=== PATIENT | male | born 1955 ===

== ENCOUNTER → 2024-07-14 10:42 | Outpatient (REF) | payer MEDICARE, BC, SELFPAY | LOC: RAD 10:42 | PROVIDERS: ATTENDING PHYSICIAN Urology; FAMILY PHYSICIAN Internal Medicine | DX: R97.20 Elevated prostate specific antigen [PSA] (principal) | CPT/HCPCS: 71046 ==

== ENCOUNTER → 2024-07-18 13:41 | Outpatient (REF) | payer MEDICARE, BC, SELFPAY | LOC: MRI 3T 13:41 | PROVIDERS: ATTENDING PHYSICIAN Urology; FAMILY PHYSICIAN Internal Medicine | DX: R97.20 Elevated prostate specific antigen [PSA] (principal) | CPT/HCPCS: 72197; A9575 ==

== ENCOUNTER 2025-01-28 21:46 | Observation (INO) | payer MEDICARE, BC, SELFPAY ==
[2025-01-28 16:41] VITALS: BP 170/90
[2025-01-28 17:10] LABS: Hematocrit 48.2 % (39.0-52.0); Hemoglobin 16.4 g/dL (13.0-18.0); Mean Corp Hgb Conc. 34.0 g/dL (33.0-37.0); Mean Corpuscular Volume 88.6 fL (80.0-94.0); Nucleated Red Blood Cells % 0 % (-); Platelet Count 186 10^3/uL (130-400); Red Cell Dist. Width 13.0 % (11.5-14.5)
[2025-01-28 17:17] LABS: INR 0.93; PT 12.9 Sec (11.4-14.6)
[2025-01-28 17:18] LABS: APTT 26.9 Sec (23.4-35.0)
[2025-01-28 17:20] LABS: ALT (SGPT) 26 U/L (0-50); AST (SGOT) 31 U/L (17-59); Albumin 4.9 g/dl (3.5-5.0); Alkaline Phosphatase 116 U/L (38-126); Blood Urea Nitrogen 22 mg/dl (9-20); Calcium 9.6 mg/dl (8.4-10.2); Carbon Dioxide 29 mmol/L (22-30); Chloride 104 mmol/L (98-107); Glucose 96 mg/dl (70-99); Potassium 4.9 mmol/L (3.5-5.1); Sodium 141 mmol/L (135-145); Total Protein 8.7 g/dl (6.3-8.2); eGFR > 60.00
--- NOTE | 2025-01-28 21:03 | ED.GENMED ---
History of Present Illness
General
Chief Complaint: Visual Problem
Source: patient
Time Seen by Provider: 01/28/25 19:50
History of Present Illness
History of Present Illness:
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 Symptoms
started approximately 10 days ago with patient noting diplopia to the left eye that improves when covering one of his eyes but symptoms returned after both eyes are open. He does report maybe having a slight headache around a month ago but states
that could just be him trying to think of other potential symptoms, no headache currently. He did receive a flu vaccination about 3 weeks ago. Denies any focal weakness or numbness, traumatic injuries, extremity related concerns, chest pain or
shortness of breath. Patient does note that on blood work he did have an upward trending hemoglobin A1c but is currently not on any medications for diabetes.
Past History
Past History
ED Past Medical History: Arrthythmia, CAD and HTN
ED Past Surgical History: Cardiac
Social History
Tobacco: Non-smoker
Alcohol: None
Drug: None
Personal:
Living: with family
Review of Systems
Review of Systems
All Other Systems: ROS reviewed and negative except as documented in HPI and ROS
Phy Exam
Physical Exam
Physical Exam:
GENERAL: Alert , in no apparent distress
HEAD: Normocephalic atraumatic
EYE: conjunctiva clear, pupils 3 mm bilateral, patient unable to laterally deviate the left eye, gross vision intact, PERRL
NECK: Supple, no carotid bruit
ENT: o/p clr, mmm.
CARDIAC: Regular rate and rhythm
LUNGS: Clear breath sounds bilaterally, no acute respiratory distress, no wheezes/rales/rhonchi
NEUROLOGICAL: Alert and oriented
SKIN: Warm and dry, skin intact.
MUSCULOSKELETAL: well perfused.
PSYCH: Normal and appropriate interaction.
Scores
Heart Failure Risk
Heart Failure Risk Score: Not Applicable
Heart Score for Chest Pain Patients
STEMI patient?: Not applicable
Withdrawal Assessment of Alcohol
Withdrawal Assessment Completed?: Not applicable
Course
Orders/Labs/Results
Orders:
Orders
01/28/25 16:51
C-Reactive Protein Urgent
Comment: ADD ON
Complete Blood Count/With Diff Urgent
Comprehensive Metabolic Panel Urgent
Erythrocyte Sed Rate Urgent
Comment: ADD ON
PTT Urgent
Prothrombin Time Urgent
01/28/25 19:51
CT Head W/o Iv Contrast Urgent
Comment:
Reason For Exam: suspected 6th nerve palsy
01/28/25 20:49
Add On- LAB Urgent
Tests Added?: esr/crp
01/28/25 20:59
Electrocardiogram (*1) Urgent
Reason for Study: TIA/Stroke
EKG- Treatment ONCE
Interrogate Pacemaker- Treatment ONCE
01/28/25 21:19
Admit/Transfer Patient As Directed
Co-Sign Provider:
Level of Care: Observation services
Assign to:: Medical/Surgical
Physician / Group: anam
Diagnosis: sixth nerve palsy
PRN Pain Medication Management As Directed
May give lesser potent ordered pain med per pt: Yes
preference::
Protocol:: Medication orders for pain may be administered in a
manner that supports deferring to patient preference
when the pt is:
- Requesting an ordered lesser potent pain medication.
Least to most potent pain medications are defined
as: acetaminophen < NSAID < tramadol < opioids
(morphine, oxycodone, hydromorphone).
- Requesting a lesser dose of the same medication IF
ORDERED.
- Requesting a less intrusive route of administration
if both routes are prescribed by the provider (PO <
IV).
01/28/25 21:20
Code Status As Directed
Resuscitation Status: Full Code
01/28/25 21:[address] Non Medication Order As Directed
Physician Order: please do swallow eval
Above order entered?: Yes
01/28/25 22:38
Acetaminophen [Tylenol] 650 mg PO Q4HPRN PRN
Bisacodyl [Dulcolax] 10 mg RECTAL [id number] PRN
Docusate W/Senna [Senokot-S] 1 tablet PO BIDPRN PRN
Polyethylene Glycol Powder [Miralax] 17 grams PO DAILYPRN PRN
01/28/25 22:38
NEUROLOGY CONSULT Routine
Consulting Provider: Abdias Win
Was physician already notified: Yes
MRI Brain [MR Brain Without Contrast] Routine
Comment:
Reason For Exam: double vision
Recent pill cam endoscopy?: No
Activity As Directed
Activity Level: As Tolerated
Neurological Checks As Directed
Frequency: Per unit guidelines
Nursing to Place Non Medication Order As Directed
Physician Order: please provide eye patch
Vital Signs As Directed
Frequency: Per unit guidelines
DX Deep Vein Thrombosis Video Routine
01/29/25 Breakfast
Regular
At Your Request: Full Participation
01/29/25 08:00
Aspirin Chewable [Low Strength Aspirin] 81 mg PO DAILY
Atorvastatin [Lipitor] 80 mg PO DAILY
Ezetimibe [Zetia] 10 mg PO DAILY
Metoprolol Xl [Toprol Xl] 25 mg PO DAILY
tadalafil 5 mg PO DAILY
01/29/25 18:00
Enoxaparin Sodium [Lovenox] 40 mg SC QPM
Abnormal Lab Results
01/28/25
16:51
Absolute Monos (auto) 0.7 H 10^3/uL
(0.1-0.6)
BUN 22 H mg/dl
(9-20)
Total Bilirubin 1.8 H mg/dl
(0.2-1.3)
Total Protein 8.7 H g/dl
(6.3-8.2)
01/28/25 16:51
01/28/25 16:51
Vital Signs
Initial and Last Documented VS:
Initial Vital Signs
Temp Pulse Resp BP Pulse Ox
98.8 F 62 18 170/90 95
01/28/25 16:41 01/28/25 16:41 01/28/25 16:41 01/28/25 16:41 01/28/25 16:41
Last Documented Vital Signs
Temp Pulse Resp BP Pulse Ox
97.7 F 61 16 170/89 97
01/28/25 22:52 01/28/25 22:52 01/28/25 22:52 01/28/25 22:52 01/28/25 22:52
MDM/Problems Addressed
Differential Diagnosis Includes:
CVA
GCA
Malignancy/Mass
ICH
Cavernous Sinus Thrombosis
Aneurysm
MS
DM
MDM/Problems Addressed:
70-year-old male presenting to the ER for evaluation of what appears to be a 6th cranial nerve palsy, symptoms ongoing for approximately 10 days. Seen by ophthalmology today who advised patient come to the ER for further evaluation. No fevers or
infectious symptoms. Patient otherwise hemodynamically stable. Labs and CT imaging ordered. Disposition pending
*Radiology
Radiology exam reviewed: radiology read reviewed
*Pulse Oximetry
SaO2: 95
Oxygen Mode of Delivery: Room air
Patient hypoxic: no
*Critical Care Note
Total Time (30-74mins, 75-104mins- exclusive of procedures): Not Applicable
Patient Management
Discussion with other providers: Hospitalist
Escalation/DeEscalation of care consider admission/obs:
Hospitalist team accepts for admission for continued evaluation and treatment with likely plan for further MRI imaging and neurology consultation
ED Attending Note
-
Portions of this chart may have been created with voice recognition software.� Occasional wrong word or��sound alike� substitutions may have occurred due to the inherent limitations of voice recognition software.
Discharge Plan
Departure
Patient Disposition: Admit
Date of Disposition: 01/28/25
Time of Disposition: 21:03
Presentation/result/management discussed w/ accepting MD/DO: Hospitalist
Discharge Problem:
Sixth cranial nerve palsy
Interventions
Interventions:
*Risk Screen - Suicide Last Done: 01/28/25 22:37
*General Assessment Last Done: 01/28/25 16:41
*Neglect/Abuse Screening Last Done: 01/28/25 19:35
*ED- Fall Risk Assessment Last Done: 01/28/25 19:35
*ED COVID-19 Vaccine History Last Done: 01/28/25 22:37
*ED Influenza Vaccine History Last Done: 01/28/25 19:35
*Nursing Disposition Last Done: 01/28/25 22:31
ED- Neurological Assessment Last Done: 01/28/25 19:36
ED-EENT Assessment Last Done: 01/28/25 19:51
ED Swallowing Screen Last Done: 01/28/25 21:38
Discharge Date and Time
Discharge Date/Time: 01/28/25 22:32
--- NOTE | 2025-01-28 21:04 | HPS.HSE ---
Family Physician
-
Family Physician: Swapnil Tate
Chief Complaint
-
double vision
History of Present Illness
70-year-old with past medical history for coronary artery disease, cardiac stents, pacemaker, BPH presented to us with double vision for past 10 days. Patient was evaluated by supervisor title and prescribed prism lenses glasses which he got on
Sunday. he was wearing it for past two days with no improvement in his symptoms. he was seen by supervisor title toady and referred to ER. denied blurry vision. denied MATTHEWS, dizzy or syncope. denied fever, chills, cough, congestion, chest pain, sob.
denied abdominal pain,n,v,d. denied dysuria or hematuria.
Medical History
Past Medical History
Past Medical History: Reports Other
Additional Past Medical History:
CAD
BPH
Squamous cell cancer
Past Surgical History: Reports Other
Additional Past Surgical History:
Cardiac stents, pacemaker, cataract surgery
Social History
Tobacco: Non-smoker
Alcohol: None
Drug: None
Personal:
Living: With Family
Family History
Family History: Not pertinent
Allergies / Home Medications
Allergies reflects when Allergies were last updated in [employer].
Home Medications with original date entered in [employer]
Allergy/Medication List:
Allergies
Allergy/AdvReac Type Severity Reaction Status Date / Time
No Known Allergies Allergy Verified 01/28/25 16:40
Review of Systems
-
Constitutional: Reports No Symptoms
EENT: Reports No Symptoms
Respiratory: Reports No Symptoms
Cardiac: Reports No Symptoms
Abdomen/GI: Reports No Symptoms
: Reports No Symptoms
Musculoskeletal: Reports No Symptoms
Skin: Reports No Symptoms
Neurological: Reports Other (Double vision)
Endocrine: Reports No Symptoms
Hematologic/Lymphatic: Reports No Symptoms
Psych: Reports No Symptoms
Physical Exam
Vital Signs
Vital Signs
Temp Pulse Resp BP Pulse Ox
98.8 F 62 18 170/90 95
01/28/25 16:41 01/28/25 16:41 01/28/25 16:41 01/28/25 16:41 01/28/25 21:03
Physical Exam
General: Well Developed, Well Nourished and No Apparent Distress
HEENT: NormoCephalic, Moist mucous membranes and Atraumatic
Respiratory: Clear
Cardiac: S1/S2 and Regular Rhythm; No Murmur or Rub
GI: Soft, Non Tender, Non Distended and Normal Bowel Sounds; No Organomegaly
Rectal: Deferred by Provider
Musculoskeletal: No Clubbing, No Cyanosis and No Edema
Skin: No Rash
Neuro: AO x 3 and Nonfocal/grossly intact
Psych: Calm
Laboratory Results
-
01/28/25 16:51
01/28/25 16:51
Laboratory Results
PT 12.9 Sec (11.4-14.6) 01/28/25 16:51
INR 0.93 01/28/25 16:51
APTT 26.9 Sec (23.4-35.0) 01/28/25 16:51
Total Bilirubin 1.8 mg/dl (0.2-1.3) H 01/28/25 16:51
AST 31 U/L (17-59) 01/28/25 16:51
ALT 26 U/L (0-50) 01/28/25 16:51
Alkaline Phosphatase 116 U/L (38-126) 01/28/25 16:51
Data Reviewed
-
Lab Data: Labs Reviewed by me
Impression/Plan
-
#sixth cranial nerve palsy
-head CT pending
- Obtain MRI of the brain
-neuro check
-Neurology consulted
# History of cardiac stent
# History of pacemaker
-Plan for interrogation of pacemaker in the ER
-Aspirin, metoprolol, statin continued
# BPH
-Tadalafil continue
# DVT prophylaxis
-Lovenox
# CODE STATUS
-Full code
--- NOTE | 2025-01-28 21:26 | W.PN.UPDATE ---
Update Note
Progress Note Update
This is an addendum to H&P written by STERNMAN Merissa Reinoso
I saw and examined the patient.
The STERNMAN's note was reviewed and I agree with the note.
Comment:
Mr. Song Cordova is a 70 yo man with hx CAD s/p PCI, PPM, essential HTN with double vision over the past 10 days, seen by Ophthalmology today and sent to ER for 6th nerve palsy.
Triage vitals significant for hypertension. Labs unremarkable. Head CT without acute abnormality.
On exam patient has very mild 6th nerve palsy; no nystagmus. No ptosis. No facial asymmetry, normal speech, 5/5 strength upper and lower extremities, normal gait.
CT Head
IMPRESSION:
No evidence of acute intracranial abnormality.
Patient will be admitted for further work-up and evaluation of 6th nerve palsy with Brain MRI, neuro checks, Neurology consult. Continue EVENT SET UP SPECIALIST aspirin.
CAD - EVENT SET UP SPECIALIST aspirin, lipitor, metoprolol
BPH - EVENT SET UP SPECIALIST Tadalafil
Remainder of plan per STERNMAN note
[2025-01-28 21:34] LABS: C-Reactive Protein < 5.00 mg/L (0.0-10.00)
[2025-01-28 22:21] VITALS: BMI 28.1
[2025-01-28 22:52] VITALS: BP 170/89; BMI 29.5
--- NOTE | 2025-01-28 23:49 | TRANSFER ---
Pt transferred to floor by stretcher. Able to ambulate into room w/o help. AAOx3. A neuro check was performed, left eye noted to have no movement laterally. Noted to have double-vision with far sightness, fine with near sightness. Denies dizziness.
Pt washed up in the bathroom, washed his face and brushed his teeth. Call canchola within reach. House provider TT and asked for something to help him sleep. A one-time order of Melatonin was ordered. Will continue to monitor.
[2025-01-28] MEDS: MELATONIN 5 MG PO (23:53)
[2025-01-29 03:00] VITALS: BP 123/72
[2025-01-29 08:26] VITALS: BP 120/65
--- NOTE | 2025-01-29 08:40 | CON.NEURO4 ---
Addendum entered and electronically signed by Abdias Win MD 01/29/25 20:55:
I have seen and examined the patient today along with the nurse practitioner Sissy Joaquin and I agree with her assessment and the management plan. Given below is my addendum.
The patient is a 70 years old male who presented to the hospital on 01/28/2025 with a reported diplopia that started about 10 days ago. The patient says that he developed diplopia suddenly while he was driving home about 10 days ago and the
diplopia is present on the leftward gaze.
Neurologic examination:
The patient is alert and oriented x 3,
Speech is clear,
The cranial nerves II to XII are grossly intact except there is a left 6th cranial nerve palsy,
The motor strength is grossly 5/5 bilaterally in the upper and lower extremities,
The sensations are grossly intact,
The cerebellar examination does not show limb ataxia.
The patient presented with a complaint of double vision that started about 10 days ago, which was sudden in onset and was present on the leftward gaze. The patient has a left 6th cranial nerve palsy on neurologic examination. The patient has a
past medical history of increased hemoglobin A1c as per history, however is not on any medication at home. CT head was obtained on arrival in the ER and is negative for any acute abnormalities. The CTA of the head and neck does not show any
significant stenosis. Blood pressure was 170/89 on arrival.
MRI of the brain with and without contrast.
Echocardiogram.
Aspirin 81 mg daily, Plavix 75 mg daily and atorvastatin 40 mg daily.
Normalize blood pressure.
The patient is on the stroke pathway.
Will follow.
Original Note:
Consultation - Neurology 4
-
CONSULTING PHYSICIAN: Abdias Win MD
REFERRING PHYSICIAN: Hospitalists/ILIR Espinoza
DICTATED BY: ILIR Sim
DATE/TIME OF REQUEST: 01/28/25
DATE/TIME OF CONSULTATION: 01/29/25
Reason for Consultation: Left Eye Cranial Nerve Palsy
History of Present Illness:
This is a 70-year-old male who has presented to the hospital on 01/28/25 with report of diplopia starting 10 days ago. Patient reports that 11 days ago he was driving home from an appointment when suddenly he developed double vision. The double
vision resolved with closing one eye. He was evaluated by his metal inspector later that afternoon and received prism glasses, which he reports did not make his symptoms any better. He reports that his diplopia has been fluctuating in severity but
has never fully resolved. CT head was obtained on arrival in the ER and is negative for any acute abnormalities. Blood pressure was 170/89 on arrival. NIHSS is 1 for slight gaze palsy in the left eye. He is not a candidate for TNK/IAT due to low
NIHSS. He denies any headache, dizziness, speech/swallow difficulty, numbness, and weakness. He notes that his hbA1c was 6.1 a few months ago, he has not been started on any medications for diabetes yet, the plan was to repeat testing in a few
months. He is taking aspirin 81mg daily for cardiac purposes.
Past Medical History: HTN, CAD, BPH, squamous cell carcinoma
Surgical History: Cardiac stent, pacemaker, b/l cataract removal
Family History: Reviewed and noncontributory.
Social History: Denies tobacco, alcohol, and illicit drug use.
Allergies: No known allergies.
Home Medications: See below.
Review of Symptoms:
Patient denies any fever, headache, chest pain, shortness of breath, GI or symptoms.
�Per the HPI.�All systems are reviewed negative except above.
Physical Exam:
The patient is afebrile, abdomen is nondistended, breathing is unlabored, skin is warm and dry, no edema.
NIH Stroke Scale:
I performed the NIH stroke scale on the patient on 01/29/25 at 1000. The patient scored 1 points on the NIH stroke scale assessment, which were assigned as follows: See below.
Neurologic Examination:
The patient is awake, alert and oriented x 3. He is able to follow commands and answer questions appropriately. There is no aphasia or dysarthria. On cranial nerve assessment, pupils are 3 mm bilateral, round and reactive to light and
accommodation. Visual cherry are full. Extraocular movements are intact in the right eye. +L eye CN 6 palsy. Facial sensations are intact and bilaterally symmetrical, there is no facial asymmetry. Hearing is intact bilaterally to normal conversation
volume. Tongue palate and uvula are midline. Sternocleidomastoid strengths are full bilaterally. Motor strengths are 5/5 bilateral upper and lower extremities on medical research [place] scale. There is no drift or involuntary movement noted. Deep
tendon reflexes are 2+ bilateral upper and lower extremities and Babinski is absent bilaterally. There was no extinction noted on double simultaneous stimulation. Coordination is intact by finger to nose bilaterally.
Lab Results: See below.
Neuro Imaging:
1. CT head 01/28/25: No evidence of acute intracranial abnormality.
Differentials for the patient's presentation include:
1. Left eye cranial nerve 6 palsy; etiology is likely small vessel disease, cannot entirely exclude a structural brain/blood vessel abnormality contributing to symptoms.
Patient has the following risk factors for their symptoms: HTN, HLD, newly elevated A1c, age
IV Tenecteplase/IAT candidacy: He is not a candidate for TNK/IAT due to low NIHSS.
Recommendations:
-Continue aspirin 81mg daily.
-MRI brain with and w/o contrast pending.
-CTA head/neck pending.
-Goal normotension.
-LDL goal <70. LDL is 61. Continue home atorvastatin 80mg and ezetimibe 10mg daily.
-Goal normoglycemia, hbA1c is pending.
-NIHSS and neurological checks per unit guidelines.
-Provide patient with a stroke education packet.
-Eye patch for comfort.
-Occupational therapy evaluation.
-DVT prophylaxis.
Discussed patient care with: Dr. Win, the patient, patient's spouse
Vital Signs and Labs
-
Vital Signs and Labs:
Vital Signs
Temp Pulse Resp BP Pulse Ox
97.4 F 61 16 120/65 97
01/29/25 08:26 01/29/25 08:26 01/29/25 08:26 01/29/25 08:26 01/29/25 08:26
Lab Results
01/28/25 16:51
01/28/25 16:51
PT 12.9 Sec (11.4-14.6) 01/28/25 16:51
INR 0.93 01/28/25 16:51
APTT 26.9 Sec (23.4-35.0) 01/28/25 16:51
Sodium 141 mmol/L (135-145) 01/28/25 16:51
Potassium 4.9 mmol/L (3.5-5.1) 01/28/25 16:51
BUN 22 mg/dl (9-20) H 01/28/25 16:51
Glucose 96 mg/dl (70-99) 01/28/25 16:51
Calcium 9.6 mg/dl (8.4-10.2) 01/28/25 16:51
Medications
-
Active Medications
Generic Name Dose Route Start Last Admin
Trade Name Freq PRN Reason Stop Dose Admin
Acetaminophen 650 mg 01/28/25 22:38
Acetaminophen 325 Mg Tablet PO 02/25/25 22:37
Q4HPRN PRN
mild pain/MATTHEWS/temp> 100.4F
Aspirin 81 mg 01/29/25 08:00
Aspirin 81 Mg Chewable Tablet PO 02/26/25 07:59
DAILY ELIESER
Atorvastatin Calcium 80 mg 01/29/25 08:00
Atorvastatin (Lipitor) 80 Mg Tablet PO 02/26/25 07:59
DAILY ELIESER
Bisacodyl 10 mg 01/28/25 22:38
Bisacodyl 10 Mg Rectal Suppository RECTAL 02/25/25 22:37
[id number] PRN
constipation
Ezetimibe 10 mg 01/29/25 08:00
Ezetimibe (Zetia) 10 Mg Tablet PO 02/26/25 07:59
DAILY ELIESER
Enoxaparin Sodium 40 mg 01/29/25 18:00
Enoxaparin Sodium 40 Mg/0.4 Ml Syringe SC 02/26/25 17:59
QPM ELIESER
Metoprolol Succinate 25 mg 01/29/25 08:00
Metoprolol 25 Mg Extended Release Tablet PO 02/26/25 07:59
DAILY ELIESER
Tadalafil 5 Mg 0 mg 01/29/25 08:00
Tablet - 1 Tablet Po PO 02/26/25 07:59
Daily DAILY ELIESER
Polyethylene Glycol 17 grams 01/28/25 22:38
Polyethylene Glycol Powder 17 Grams Packet PO 02/25/25 22:37
DAILYPRN PRN
constipation
Senna/Docusate Sodium 1 tablet 01/28/25 22:38
Docusate W/Senna (Tete-Colace) Tablet PO 02/25/25 22:37
BIDPRN PRN
constipation
Sodium Chloride 0 flush 01/28/25 23:00
Sodium Chloride 0.9% (Flush) Syringe IV 02/25/25 22:59
PER PROTOCOL ELIESER
Home Medications
�Medication �Instructions �Recorded
aspirin 81 mg chewable tablet 81 mg PO DAILY 01/28/25
atorvastatin 80 mg tablet 80 mg PO DAILY 01/28/25
ezetimibe 10 mg tablet (Zetia) 10 mg PO DAILY 01/28/25
metoprolol succinate 25 mg 25 mg PO DAILY 01/28/25
tablet,extended release 24 hr
tadalafil 5 mg tablet 5 mg PO DAILY 01/28/25
NIH Stroke Score
Subsequent NIH Scale
Date of Subsequent NIH Scale: 01/29/25
Time of Subsequent NIH Scale: 10:00
NIH Stroke Score
Level of Consciousness: 0 - Alert
LOC Questions: 0-Answers both correctly
LOC Commands: 0-Performs both correctly
Best Horizontal Gaze: 1-Partial gaze palsy
Visual Cherry: 0=Normal, no visual loss
Facial Palsy: 0=Normal, symmetrical
Motor - Right Arm: 0=No drift 10 seconds
Motor - Left Arm: 0=No drift 10 seconds
Motor - Right Le-No drift 5 seconds
Motor - Left Le-No drift 5 seconds
Limb Ataxia: 0-Absent
Sensation: 0-Normal
Best Language: 0-No aphasia
Dysarthria: 0-Normal
Extinction and Inattention: 0-No abnormality
NIH Total Score:: 1
Modified Jessica (mRS) Score
Modified [place] Scale (mRS): Slight disability. Able to look after own affairs.
Score: 2
Alteplase Contraindication
Inclusion and Exclusion criteria reviewed: Yes
Reasons for NON-Tx with Thrombolytics ABSOLUTE Exclusions: Greater than 4.5 hrs from onset of sxs
IAT Contraindications: NIHSS < 6
[2025-01-29] MEDS: LIPITOR 80 MG PO (08:44)
[2025-01-29] MEDS: TOPROL XL 25 MG PO (08:44)
[2025-01-29] MEDS: LOW STRENGTH ASPIRIN 81 MG PO (08:44)
[2025-01-29] MEDS: ZETIA 10 MG PO (08:44)
[2025-01-29] MEDS: NON-FORMULARY ITEM 5 MG PO (08:45)
[2025-01-29 09:57] LABS: HDL Cholesterol 79 mg/dl; LDL Cholesterol, Calculated 61 mg/dl; Very Low Density Lipoprotein 18 mg/dl (0-30)
[2025-01-29 10:53] LABS: Ferritin 86.6 ng/ml (17.9-464.0)
--- NOTE | 2025-01-29 11:00 | PTCARENOTE ---
NIH started per order after patient returned from CT scan. NIH score was 1 for left eye for partial gaze palsy, c/o double vision with distance. not able to abduct eye when looking to left. improved with eye patch on left eye as ordered.
independent, vss, will continue to monitor.
[2025-01-29 11:45] LABS: Glycohemoglobin (HgbA1c) 6.1 % (4.0-5.9)
[2025-01-29 11:56] LABS: Folate 9.8 ng/ml (2.76-20); Vitamin B12 399 pg/ml (239-931)
--- NOTE | 2025-01-29 12:29 | W.PN.HOSP.TC ---
Today's Communication/Plan
-
MRI brain
Assessment / Plan
Assessment / Plan
Isolated left 6th cranial nerve palsy-unclear etiology. No other associated neurological findings clinically.
CT of the head was negative for any acute findings. CT of the head and neck report pending.
MRI of the brain pending.
Neurology following.
CAD - FURNITURE MOVER HELPER aspirin, lipitor, metoprolol
BPH - FURNITURE MOVER HELPER Tadalafil
Anticipated Discharge: Within 24 hours
Subjective/Interval History
-
Date of Service: January 29, 2025
With persistent diplopia in the left eye. He now has an eye patch which takes away his symptoms. No headache. No speech impairment or limb weakness.
Denies any prior history of stroke.
Objective Data
-
Vital Signs:
Vital Signs
Temp Pulse Resp BP Pulse Ox
97.4 F 61 16 120/65 97
01/29/25 08:26 01/29/25 08:44 01/29/25 08:26 01/29/25 08:44 01/29/25 08:26
I&O
01/28/25 01/29/25 01/30/25
06:59 06:59 06:59
Intake Total 480 / 480
Balance 480 / 480
Physical Exam
-
Respiratory: Clear to Auscultation and Non Labored Respirations; Negative Accessory Resp Muscle Use
Cardiac: Regular Rhythm and S1/S2; Negative Tachycardic
GI: Soft
Neuro: No Motor Deficits and Other (Left 6th cranial nerve palsy noted-failure to abduct looking to the left in the left eye); Negative Tremors, Slurred Speech or Facial Droop
Psych: Calm
Data Reviewed
-
CT Scan: Report Reviewed by me (CT head)
Labs: Labs Reviewed by me
[2025-01-29 16:26] VITALS: BP 149/77
[2025-01-29] MEDS: IMODIUM 2 MG PO (17:30)
[2025-01-29] MEDS: LOVENOX 40 MG SC (17:30)
--- NOTE | 2025-01-29 18:25 | PTCARENOTE ---
at 1755, patient reported 5 episodes of diarrhea since taking melatonin last night x1. he reports anytime he takes it causes diarrhea but helps sleep and he was desperate for sleep last night and requesting Imodium. notified Dr. Russell requesting
Imodium per patient request. Imodium ordered PRN (see MAR), will continue to monitor.
[2025-01-29 23:12] VITALS: BP 123/65
[2025-01-30 07:34] VITALS: BP 124/71
[2025-01-30] MEDS: LOW STRENGTH ASPIRIN 81 MG PO (08:38)
[2025-01-30] MEDS: LIPITOR 80 MG PO (08:38)
[2025-01-30] MEDS: TOPROL XL 25 MG PO (08:38)
[2025-01-30] MEDS: ZETIA 10 MG PO (08:38)
[2025-01-30] MEDS: NON-FORMULARY ITEM 1 MG PO (08:39)
[2025-01-30 10:00] VITALS: BP 118/73; PULSE 57; O2SAT 97
--- NOTE | 2025-01-30 10:23 | CM ---
CM met with Song and his at bedside. Pt is AAOx3, independent in the room. Awaiting MRI which is scheduled for 10:30am today.
Pt and live in a split level home with 2 entry steps. 6 steps to the bathroom from entry level manufacturing engineer.
No hx of DME or SNF.
Plan: Discharge to home with no needs anticipated pending MRI results.
PCP: Dr. Tate
Pharmacy: [facility] in [place]
[2025-01-30] MEDS: NSS (PRESERVATIVE FREE) 0.25 ML IV (10:46)
[2025-01-30] MEDS: ATIVAN 0.5 MG IV (10:46)
--- NOTE | 2025-01-30 11:14 | PTOTSP ---
Pt presents to OT with a left 6th cranial nerve palsy; decreased abduction noted in left eye; horizontal double vision at ~15' from nose and increases with increased distance. Provided pt with home exercises to address mobility; recommended
outpatient OT for ocular mobility evaluation and treatment. Currently at independent level for basic self care, transfers and functional mobility without AD. No further skilled OT indicated at this time.
--- NOTE | 2025-01-30 15:20 | W.PN.HOSP.TC ---
Today's Communication/Plan
-
dc
Assessment / Plan
Assessment / Plan
Isolated left 6th cranial nerve palsy-unclear etiology. No other associated neurological findings clinically.
CT of the head was negative for any acute findings. CT of the head and neck no evidence of aneurysm
MRI of the brainn no evidence of sroke or tumor or demyelination
DW Neuro today - suspect microvascular dz - ok for DC and follow with in neuro office in 2 weeks
Optimize BP
CW ASA and statins
HbA1c 6.1
CAD - SERVICE CONSULTANT aspirin, lipitor, metoprolol
BPH - SERVICE CONSULTANT Tadalafil
Anticipated Discharge: Today
Subjective/Interval History
-
Date of Service: January 30, 2025
Feels improved
Less diplopia
No dizziness
No new neurological symptoms
Objective Data
-
Vital Signs:
Vital Signs
Temp Pulse Resp BP Pulse Ox
97.4 F 62 18 124/71 98
01/30/25 07:34 01/30/25 07:34 01/30/25 07:34 01/30/25 07:34 01/30/25 07:34
I&O
01/29/25 01/30/25 01/31/25
06:59 06:59 06:59
Intake Total 480 / 480
Balance 480 / 480
Physical Exam
-
General: Comfortable
Respiratory: Clear to Auscultation and Non Labored Respirations; Negative Accessory Resp Muscle Use
Cardiac: Regular Rhythm and S1/S2
Neuro: AO x 3, No Motor Deficits and Other (Still with left LR palsy -slightly better movement on abduction)
Psych: Calm
Data Reviewed
-
MRI: Report Reviewed by me (brain)
--- NOTE | 2025-01-30 15:24 | W.PN.NEURO.1 ---
Today's Communication / Plan
-
MRI of the brain with and without contrast does not show acute intracranial abnormality.
Today, the patient is doing better and he says that he can move his left eye towards the left side much better than yesterday. The severity of diplopia is much less today as compared to yesterday.
The patient and his feel much better today due to the improvement seen.
Aspirin 81 mg daily, Plavix 75 mg daily and atorvastatin 40 mg daily.
Normalize blood pressure.
The patient is on the stroke pathway.
Follow-up with the neurology as an outpatient in 2 weeks.
Subjective/Objective
Subjective Data
Date of Service: January 30, 2025
The patient is a 70 years old male who presented to the hospital on 01/28/2025 with a reported diplopia that started about 10 days ago. The patient says that he developed diplopia suddenly while he was driving home about 10 days ago and the
diplopia is present on the leftward gaze.
Neurologic examination:
The patient is alert and oriented x 3,
Speech is clear,
The cranial nerves II to XII are grossly intact except there is a left 6th cranial nerve palsy,
The motor strength is grossly 5/5 bilaterally in the upper and lower extremities,
The sensations are grossly intact,
The cerebellar examination does not show limb ataxia.
The patient presented with a complaint of double vision that started about 10 days ago, which was sudden in onset and was present on the leftward gaze. The patient has a left 6th cranial nerve palsy on neurologic examination. The patient has a
past medical history of increased hemoglobin A1c as per history, however is not on any medication at home. CT head was obtained on arrival in the ER and is negative for any acute abnormalities. The CTA of the head and neck does not show any
significant stenosis. Blood pressure was 170/89 on arrival.
MRI of the brain with and without contrast does not show acute intracranial abnormality.
Echocardiogram.
Today, the patient is doing better and he says that he can move his left eye towards the left side much better than yesterday. The severity of diplopia is much less today as compared to yesterday.
The patient and his feel much better today due to the improvement seen.
Aspirin 81 mg daily, Plavix 75 mg daily and atorvastatin 40 mg daily.
Normalize blood pressure.
The patient is on the stroke pathway.
Follow-up with the neurology as an outpatient in 2 weeks.
Objective Data
Vital Signs
Temp Pulse Resp BP Pulse Ox
36.3 C 62 18 124/71 98
01/30/25 07:34 01/30/25 07:34 01/30/25 07:34 01/30/25 07:34 01/30/25 07:34
Lab Results
01/28/25 16:51
01/28/25 16:51
PT 12.9 Sec (11.4-14.6) 01/28/25 16:51
INR 0.93 01/28/25 16:51
APTT 26.9 Sec (23.4-35.0) 01/28/25 16:51
Sodium 141 mmol/L (135-145) 01/28/25 16:51
Potassium 4.9 mmol/L (3.5-5.1) 01/28/25 16:51
BUN 22 mg/dl (9-20) H 01/28/25 16:51
Glucose 96 mg/dl (70-99) 01/28/25 16:51
Calcium 9.6 mg/dl (8.4-10.2) 01/28/25 16:51
LDL Cholesterol, Calc 61 mg/dl 01/28/25 16:51
Vitamin B12 399 pg/ml (239-931) 01/28/25 16:51
Patient Allergies
No Known Allergies Allergy (Verified 01/28/25 16:40)
Vital Signs and Labs
-
Vital Signs and Labs:
Vital Signs
Temp Pulse Resp BP Pulse Ox
36.3 C 62 18 124/71 98
11/14/25 07:34 01/30/25 07:34 01/30/25 07:34 01/30/25 07:34 01/30/25 07:34
Lab Results
01/28/25 16:51
01/28/25 16:51
PT 12.9 Sec (11.4-14.6) 01/28/25 16:51
INR 0.93 01/28/25 16:51
APTT 26.9 Sec (23.4-35.0) 01/28/25 16:51
Sodium 141 mmol/L (135-145) 01/28/25 16:51
Potassium 4.9 mmol/L (3.5-5.1) 01/28/25 16:51
BUN 22 mg/dl (9-20) H 01/28/25 16:51
Glucose 96 mg/dl (70-99) 01/28/25 16:51
Calcium 9.6 mg/dl (8.4-10.2) 01/28/25 16:51
LDL Cholesterol, Calc 61 mg/dl 01/28/25 16:51
Vitamin B12 399 pg/ml (239-931) 01/28/25 16:51
Medications
-
Home Medications
�Medication �Instructions �Recorded
aspirin 81 mg chewable tablet 81 mg PO DAILY Blood Clot 01/28/25
Prevention/Tx
atorvastatin 80 mg tablet 80 mg PO DAILY High Cholesterol 01/28/25
ezetimibe 10 mg tablet (Zetia) 10 mg PO DAILY High Cholesterol 01/28/25
metoprolol succinate 25 mg 25 mg PO DAILY Heart 01/28/25
tablet,extended release 24 hr Disease/Condition
tadalafil 5 mg tablet 5 mg PO DAILY Lung/Breathing Issues 01/28/25
--- NOTE | 2025-01-31 13:51 | W.DCSUMMARY ---
Discharge Summary
Discharge Data
Date of Admission: 01/28/25
Date of Discharge: 01/30/25
-
Pending Results: No
Hospital Course
Primary diagnosis:
Acute isolated left 6th nerve palsy
Secondary diagnosis:
Coronary artery disease status post prior percutaneous intervention
Permanent pacemaker in place
Essential hypertension
Hospital course:
Patient presented with acute episode of double vision for the past 10 days. He was diagnosed to have isolated left 6th nerve palsy. No other cranial nerve deficit or peripheral nerve system deficit noted. No head trauma. MRI of the brain showed
no evidence of stroke, intracranial lesions. CT of the head and neck showed no vascular occlusions. Moderate calcified plaque in the left carotid bulb resulting in approximately 50% stenosis of proximal left internal carotid artery. Mild calcific
plaque in the right carotid bulb less than 50% stenosis of the proximal right internal carotid artery. No aneurysms noted.
No immediate etiology was clear. Unclear if this is microvascular injury to the 6 no. Seen by neurology. Advised occupational therapy for ocular mobility and follow-up with them in office in 2 weeks. Eye patch was provided. Was feeling slightly
improved prior to DC.
Consultants on board:
Neurology -Abdias Corley
Portions of this chart may have been created with voice recognition software. Occasional wrong word or 'sound alike' substitutions may have occurred due to the inherent limitations of voice recognition software.
Discharge Plan
-
Patient Disposition: Home (Routine Discharge)
Discharge Diagnosis/Procedures: Isolated left 6th nerve palsy
Diet: 2 Gram Sodium
Activity: As tolerated
Driving Restrictions: Not until seen by your Dr
Bathing Restrictions: None
Referrals:
Abdias Win MD [Active, Neurology] - in two weeks
Swapnil Tate MD [Family Provider, Internal Medicine] - in less than 1 week
Prescriptions:
Continued
atorvastatin 80 mg tablet
80 mg PO DAILY
aspirin 81 mg Tablet,Chewable
81 mg PO DAILY
metoprolol succinate 25 mg Tablet Extended Release 24 Hr
25 mg PO DAILY
ezetimibe [Zetia] 10 mg Tablet
10 mg PO DAILY
tadalafil 5 mg Tablet
5 mg PO DAILY
Discharge Orders:
Discharge Patient (As Directed); Ordered 01/30/25
Ordered By: Tone Russell
Discharge Date and Time
Discharge Date/Time: 01/30/25 15:23
Print Language: SERBIAN
== END 2025-01-30 15:23 | disposition home or self-care (01) ==
LOC: 3 WEST ACU 21:46
PROVIDERS: ADMITTING PHYSICIAN Student in an Organized Health Care Education/Training Program; ATTENDING PHYSICIAN Internal Medicine; CONSULT PHYSICIAN Psychiatry & Neurology Neurology; EMERGENCY PHYSICIAN Emergency Medicine; FAMILY PHYSICIAN Internal Medicine
DX: H53.9 Unspecified visual disturbance (principal); I25.10 Atherosclerotic heart disease of native coronary artery without angina pectoris; I10 Essential (primary) hypertension; H53.2 Diplopia; N40.0 Benign prostatic hyperplasia without lower urinary tract symptoms; H49.22 Sixth [abducent] nerve palsy, left eye; I65.23 Occlusion and stenosis of bilateral carotid arteries; I49.1 Atrial premature depolarization; I45.4 Nonspecific intraventricular block; Z98.42 Cataract extraction status, left eye; Z98.41 Cataract extraction status, right eye; Z79.899 Other long term (current) drug therapy; Z79.82 Long term (current) use of aspirin; Z95.0 Presence of cardiac pacemaker; Z95.5 Presence of coronary angioplasty implant and graft; Z79.02 Long term (current) use of antithrombotics/antiplatelets
CPT/HCPCS: 70450; 70496; 70498; 70553; 80053; 80061; 82607; 82728; 82746; 83036; 84443; 85025; 85610; 85652; 85730; 86140; 93005; 97110; 97166; 99285; A9575; G0378; Q9967

== ENCOUNTER 2025-03-18 07:10 | Outpatient (RCR) | payer MEDICARE, BC, SELFPAY | END 2025-03-18 10:13 | disposition home or self-care (01) | LOC: ROT 07:10 | PROVIDERS: ATTENDING PHYSICIAN Psychiatry & Neurology Neurology; FAMILY PHYSICIAN Internal Medicine | DX: H49.22 Sixth [abducent] nerve palsy, left eye (principal); Z73.6 Limitation of activities due to disability | CPT/HCPCS: 97110; 97167; 97530; 97535 ==